=== PATIENT | female | born 1945 | race Caucasian/White ===

== ENCOUNTER → 2017-04-01 | Outpatient (CLI) | payer MEDICARE, BC ==
[~2017-04-01] MED LIST: ASPIRIN E.C. 8181 MG PO; FOLIC ACID 40400 MCG PO; IRON325 M1 PO; LOPRESSOR 225 MG/TAB PO; NITROSTAT0.4 MG/TAB SL; PRINIVIL10 MG PO; ROXICODONE 55 MG/TAB PO; TRICOR 48MG48 MG PO; VITAMIN C500 MG PO; ZANTAC 150MG T150 MG PO; ZESTORETIC 12.51 TA1 PO
== END ==
LOC: MC.RAD 02-21 11:40
DX: Z12.31 Encounter for screening mammogram for malignant neoplasm of breast (principal)

== ENCOUNTER 2017-04-09 07:48 | Day surgery (SDC) | payer MEDICARE, BC ==
[~2017-04-09] VITALS: Ht 172.8 cm; Wt 108.0 kg
[2017-04-09] VITALS (11 sets, daily range): BP systolic 120–148; BP diastolic 56–78; PULSE 52–60; TEMP 97.1
[~2017-04-09 07:48] MED LIST changes: -ASPIRIN E.C. 8181 MG PO; -LOPRESSOR 225 MG/TAB PO; -NITROSTAT0.4 MG/TAB SL; -ZESTORETIC 12.51 TA1 PO
[2017-04-09 08:32] LABS: HEMATOCRIT 41.8 % (37.0-47.0); HEMOGLOBIN 14.1 g/dl (12.5-16.0); MEAN CELL VOLUME 90 fl (80.0-100.0); MEAN CORPUSCULAR HEMOGLOBIN 30 pg (27.0-31.0); MEAN CORPUSCULAR HGB CONC 34 g/dl (33.0-37.0); MEAN PLATELET VOLUME 10.5 fl (7.4-10.4); PLATELET COUNT 219 K/mm3 (130-400); RED BLOOD COUNT 4.66 M/mm3 (4.10-5.30)
[2017-04-09] MEDS ORDERED: ASPIRIN E.C. 8181 MG PO (08:39)
[2017-04-09] MEDS ORDERED: ZESTORETIC 12.51 TA1 PO (08:40)
[2017-04-09] MEDS ORDERED: LOPRESSOR 225 MG/TAB PO (08:41)
[2017-04-09] MEDS ORDERED: NITROSTAT0.4 MG/TAB SL (08:42)
[2017-04-09 08:43] LABS: INR 0.9 (0.8-3.0); PROTHROMBIN TIME 10.2 SECONDS (9.7-12.8)
[2017-04-09 08:49] LABS: CALCIUM 10.1 mg/dL (8.4-10.2); CREATININE, serum 0.92 mg/dL (0.52-1.25); POTASSIUM 4.3 mmol/L (3.4-5.0)
== END 2017-04-09 15:00 | disposition home or self-care (01) ==
LOC: COL.CAR 07:48
PROVIDERS: Internal Medicine Cardiovascular Disease
DX: R06.02 Shortness of breath (principal); R07.9 Chest pain, unspecified; I10 Essential (primary) hypertension; E78.2 Mixed hyperlipidemia; Z90.49 Acquired absence of other specified parts of digestive tract; Z90.710 Acquired absence of both cervix and uterus; Z96.653 Presence of artificial knee joint, bilateral; Z87.891 Personal history of nicotine dependence; Z82.49 Family history of ischemic heart disease and other diseases of the circulatory system
CPT/HCPCS: C1760; C1894; J2250; J3010; Q9967

== ENCOUNTER → 2018-10-21 | Outpatient (CLI) | payer MEDICARE, BC ==
[~2018-10-21] MED LIST changes: +ASPIRIN E.C. 8181 MG PO; +LOPRESSOR 225 MG/TAB PO; +NITROSTAT0.4 MG/TAB SL; +ZESTORETIC 12.51 TA1 PO
== END ==
LOC: MC.RAD 10:12
DX: Z12.31 Encounter for screening mammogram for malignant neoplasm of breast (principal)